=== PATIENT | male | born 1955 | race Caucasian/White ===

== ENCOUNTER 2018-12-30 10:29 | Emergency (ER) | payer OTHER, SELFPAY ==
[2018-12-30 10:32] VITALS: BP 139/67; PULSE 60; RESP 16; TEMP 36.9; O2SAT 96
--- NOTE | 2018-12-30 10:41 | W.ED.GENAD ---
Discharge Plan Disposition Patient Disposition: HOME Condition: Improving Discharge Details Chief Complaint: Laceration Clinical Impression: Laceration of hand, left Primary Care Provider: None,None ED Provider: Farhad Mason Discharge Instructions Instructions: Laceration (ED) Additional Instructions: Return or see your primary care physician for removal of stitches in 7 days. May use warm soap and water, pat dry and replace dressing daily. Return for any other acute concerns Medical Decision Making 6 healthy 63-year-old male presents with left hand laceration that he suffered when he brushed against a metal cutting tool at his place of work. No numbness, tingling, weakness. No other injury. Tetanus out of date. Wound anesthetized, irrigated, examined in a bloodless field without evidence of foreign body. Repaired with 2 interrupted sutures. Tetanus updated. Patient stable for outpatient management. He may return or see PMD for removal of sutures in 7 days. HPI General Mode of arrival: ambulatory. Date/Time Provider Initiated Documentation: 12/30/18 10:31. Limitations to Documentation: no limitations. Information obtained by: patient. History of Present Illness 63 year old M presents to the emergency department with the chief complaint of Left hand laceration with mild bleeding, no numbness or tingling, described as mild, Quality is described as aching, and is localized to the left and upper extremity. Patient reports no radiation. Patient started experiencing this minute(s) and it has been constant. No exacerbating factors reported . Patient notes no other symptoms.. Patient did receive the following treatments prior to arrival, none Related Data Allergies Allergy/AdvReac Type Severity Reaction Status Date / Time No Known Allergies Allergy Unverified 12/28/13 09:57 General Stated Complaint: Laceration MANDA: 4 Review of Systems Review of Systems For systems reviewed and otherwise negative [facility] Social History Smoking/Tobacco Use Status: Current every day Exam Narrative Exam Narrative: GEN: awake, alert, oriented 3. Pleasant, well groomed, interactive. HEAD: Normocephalic, atraumatic ENT: Mucous membranes moist, oropharynx unremarkable, External ear exam unremarkable EYES: PERRL, EOMI NECK: Full ROM, no YANG, no menigismus EXT: Full ROM, no edema, no rash. Left hand with 1 cm linear laceration over the hyperthenar eminence. Capillary refill less than 2 seconds, sensation intact, motor 5 out of 5 throughout Neuro: Grossly normal neurologic exam, conversant, interactive. Psych: Speech fluent, thoughts congruent, affect normal Course Vital Signs Temperature 36.9 C 12/30/18 10:32 Pulse 60 12/30/18 10:32 Respiratory Rate 16 12/30/18 10:32 Blood Pressure 139/67 12/30/18 10:32 Pulse Oximetry 96 12/30/18 10:32 Temperature 36.9 C 12/30/18 10:32 Temperature Source Skin 12/30/18 10:32 Pulse 60 12/30/18 10:32 Respiratory Rate 16 12/30/18 10:32 Blood Pressure 139/67 12/30/18 10:32 Pulse Oximetry 96 12/30/18 10:32 Oxygen Delivery Method Room Air 12/30/18 10:32 Oxygen Flow Rate 0 12/30/18 10:32 Pain Level 0 12/30/18 10:32 Procedures Laceration Laceration 1: Site: hand Side (If applicable): left Size (cm): 1 Description: linear Depth: simple, single layer Local Anesthetic: Lidocaine 1% Amount of anesthesia used (mL): 1 Skin layer closed with: nylon Size (cm): 4-0 Number of sutures: 2 Technique: simple, interrupted
--- NOTE | 2018-12-30 10:44 | ED.GENADUL_ITS ---
Discharge Plan Disposition Patient Disposition: HOME Condition: Improving Discharge Details Chief Complaint: Laceration Clinical Impression: Laceration of hand, left Primary Care Provider: None,None ED Provider: Farhad Mason Discharge Instructions Instructions: Laceration (ED) Additional Instructions: Return or see your primary care physician for removal of stitches in 7 days. May use warm soap and water, pat dry and replace dressing daily. Return for any other acute concerns Medical Decision Making 6 healthy 63-year-old male presents with left hand laceration that he suffered when he brushed against a metal cutting tool at his place of work. No numbness, tingling, weakness. No other injury. Tetanus out of date. Wound anesthetized, irrigated, examined in a bloodless field without evidence of foreign body. Repaired with 2 interrupted sutures. Tetanus updated. Patient stable for outpatient management. He may return or see PMD for removal of sutures in 7 days. HPI General Mode of arrival: ambulatory . Date/Time Provider Initiated Documentation: 12/30/18 10:31 . Limitations to Documentation: no limitations . Information obtained by: patient . History of Present Illness 63 year old M presents to the emergency department with the chief complaint of Left hand laceration with mild bleeding, no numbness or tingling, described as mild, Quality is described as aching, and is localized to the left and upper extremity. Patient reports no radiation. Patient started experiencing this minute(s) and it has been constant. No exacerbating factors reported . Patient notes no other symptoms.. Patient did receive the following treatments prior to arrival, none Related Data Allergies Allergy/AdvReac Type Severity Reaction Status Date / Time No Known Allergies Allergy Unverified 12/28/13 09:57 General Stated Complaint: Laceration MANDA: 4 Review of Systems Review of Systems For systems reviewed and otherwise negative [facility] Social History Smoking/Tobacco Use Status: Current every day Exam Narrative Exam Narrative: GEN: awake, alert, oriented 3. Pleasant, well groomed, interactive. HEAD: Normocephalic, atraumatic ENT: Mucous membranes moist, oropharynx unremarkable, External ear exam unremarkable EYES: PERRL, EOMI NECK: Full ROM, no YANG, no menigismus EXT: Full ROM, no edema, no rash. Left hand with 1 cm linear laceration over the hyperthenar eminence. Capillary refill less than 2 seconds, sensation intact, motor 5 out of 5 throughout Neuro: Grossly normal neurologic exam, conversant, interactive. Psych: Speech fluent, thoughts congruent, affect normal Course Vital Signs Temperature 36.9 C 12/30/18 10:32 Pulse 60 12/30/18 10:32 Respiratory Rate 16 12/30/18 10:32 Blood Pressure 139/67 12/30/18 10:32 Pulse Oximetry 96 12/30/18 10:32 Temperature 36.9 C 12/30/18 10:32 Temperature Source Skin 12/30/18 10:32 Pulse 60 12/30/18 10:32 Respiratory Rate 16 12/30/18 10:32 Blood Pressure 139/67 12/30/18 10:32 Pulse Oximetry 96 12/30/18 10:32 Oxygen Delivery Method Room Air 12/30/18 10:32 Oxygen Flow Rate 0 12/30/18 10:32 Pain Level 0 12/30/18 10:32 Procedures Laceration Laceration 1: Site: hand Side (If applicable): left Size (cm): 1 Description: linear Depth: simple, single layer Local Anesthetic: Lidocaine 1% Amount of anesthesia used (mL): 1 Skin layer closed with: nylon Size (cm): 4-0 Number of sutures: 2 Technique: simple, interrupted
== END 2018-12-30 11:00 | disposition home or self-care (01) ==
LOC: ER 10:59
PROVIDERS: Emergency Provider Emergency Medicine
DX: S61.412A Laceration without foreign body of left hand, initial encounter (principal); W26.8XXA Contact with other sharp object(s), not elsewhere classified, initial encounter
CPT/HCPCS: 12001; 90471

== ENCOUNTER 2022-03-08 02:30 | Outpatient (CLI) | payer BC, SELFPAY ==
[2022-03-08 17:23] LABS: Hemoglobin A1C 5.8 % (<5.7)
[2022-03-08 20:54] LABS: Calculated LDL 103 mg/dL (<100); Cholesterol 161 mg/dL (<200); HDL Cholesterol 41 mg/dL (40-60); Triglyceride 86 mg/dL (<150)
[2022-03-11 09:55] LABS: PSA, Screening 1.7 ng/mL (<=4.5)
== END 2022-03-08 02:31 | disposition home or self-care (01) ==
LOC: LBO 02:30
PROVIDERS: PCP Nurse Practitioner Family; Visit Provider Nurse Practitioner Family
DX: Z13.220 Encounter for screening for lipoid disorders (principal); Z13.1 Encounter for screening for diabetes mellitus; Z12.5 Encounter for screening for malignant neoplasm of prostate
CPT/HCPCS: 36415; 80061; 84153; 83036

== ENCOUNTER → 2023-08-05 10:10 | Outpatient (CLI) | payer MEDICARE, SELFPAY ==
--- NOTE | 2023-08-05 07:30 | DI.US_ITS ---
Exam(s) US LOWER EXTREMITY VENOUS LT EXAM: US LOWER EXTREMITY VENOUS LT CLINICAL HISTORY: r/o DVT M79.89 SOFT TISSUE DISORDER I83.899 VARICOSE VEIN LOWER EXTREMITY TECHNIQUE: Grayscale, color, and doppler imaging of the deep venous system of the lower extremity w as performed. COMPARISON: Left FINDINGS: There is no evidence of intraluminal thrombus and there is normal compression and augmentation demons trated within the common femoral vein, femoral vein, and popliteal vein. In the ipsilateral calf the interrogated deep veins also exhibit normal compression/ augmentation pro perties. However, this study is positive for clot within the greater saphenous vein and associated varicose ve ins from the proximal thigh to the level of the knee, this clot length being slightly over 20 cm belkis th. The upper aspect of the intraluminal thrombus is 3.7 cm from the saphenofemoral junction. IMPRESSION: This study is positive for the presence thrombus within the greater saphenous vein in the thigh exten ding from the upper thigh to the level of the knee with clot length being approximately 20 cm. The distance from the most cephalad aspect of the clot to the saphenofemoral junction is 3.7 cm. Appropriate follow-up recommended. Positive DATA REPOSITORY:
== END ==
PROVIDERS: PCP Nurse Practitioner Family; Visit Provider Nurse Practitioner Family
DX: I83.899 Varicose veins of unspecified lower extremity with other complications (principal); M79.89 Other specified soft tissue disorders
CPT/HCPCS: 93971

== ENCOUNTER 2023-09-24 02:34 | Emergency (ER) | payer MEDICARE, SELFPAY ==
[2023-09-24] VITALS (24 sets, daily range): BP systolic 112–164; BP diastolic 43–60; PULSE 62–77; RESP 11–18; TEMP 36.4; O2SAT 93–97
--- NOTE | 2023-09-24 02:30 | DI.CT_ITS ---
Exam(s) CT CHEST PE CTA EXAM: CT CHEST PE CTA CLINICAL HISTORY: recent dvt, now SOB, r/o PE. TECHNIQUE: Imaging Protocol: CT angiography of the chest was performed using pulmonary embolus dannielle col. Multi planar reconstructions were performed. CONTRAST MATERIAL: Intravenous: Omnipaque 350 Contrast volume: 100 cc COMPARISON: No exams were available for comparison FINDINGS: CHEST: PULMONARY ARTERIES: Suboptimal opacification of segmental and subsegmental pulmonary arteries. There are no intraluminal filling defects in the more proximal main pulmonary arteries. LUNGS: No confluent infiltrates nor pleural effusions. No evidence of pulmonary infarction.. No obv ious pulmonary nodules. MEDIASTINUM: There is no hilar nor mediastinal adenopathy. No subcarinal adenopathy. Visualized thyr oid gland unremarkable. The esophagus is filled with fluid up to its origin. No evidence of aspirat ion pneumonia. CARDIAC: Heart size is upper normal. There is no pericardial effusion.Caliber of the thoracic aorta is within normal limits. No evidence of dissection. There is no significant shift of the interventri cular septum. PARTIALLY VISUALIZED UPPERMOST ABDOMEN: No adrenal masses. No splenomegaly. OSSEOUS: No significant osseous lesions.. IMPRESSION: 1. Less than optimal study for determination of pulmonary emboli. Examination is nondiagnostic for s mall more distal pulmonary emboli..There are no intraluminal filling defects in the main pulmonary ar teries. 2. No evidence of aortic dissection nor pericardial effusion. 3. Fluid distention of the esophagus noted, probably related to reflux. No evidence of aspiration pn eumonia at this time. No pleural effusions. RADIATION DOSE DELIVERED: Total DLP DATA REPOSITORY: All CT scans at this facility are submitted to the National Radiology Data Registry (NRDR) Dose Index Registry (DIR) with the [employer] (ACR). RADIATION OPTIMIZATION: All CT scans at this facility use at least one of these dose optimization te chniques: automated exposure control; mA and/or kV adjustment per patient size (includes targeted exa ms where dose is matched to clinical indication); or iterative reconstruction.
--- NOTE | 2023-09-24 02:30 | RT.EKG_ITS ---
APPROVED REPORT Exam: Resting ECG Reason for Exam: difficulty breathing Patient Location: E HR:74 bpm ECG Measurements Heart Rate 74 AXIS NE 166 P 80 QRSd 89 QRS 45 QT 379 T 67 QTc 421 Conclusion Sinus rhythm...normal P axis, V-rate 60- 99 Physician: no stemi
--- NOTE | 2023-09-24 02:30 | DI.CT_ITS ---
Exam(s) CT HEAD WO EXAM: CT HEAD WO CLINICAL HISTORY: dizzy, confused. TECHNIQUE: Imaging Protocol: Axial computed tomography images with coronal and sagittal reformatted images were created and reviewed COMPARISON: No exams were available for comparison FINDINGS: There are no skull fractures. 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 There is a circumferential wire in the lateral wall of the right orbit no ab normal fluid collection at this level. 4 x 0.9 cm. There is no evidence of intracranial hemorrhage, mass effect, or shift of midline structures. There are no extra-axial fluid collections. The ventricles are not enlarged or shifted and there is no blo od within the ventricular system nor within the basal cisterns. IMPRESSION: No acute intracranial findings on this noninfused CT scan of the brain. Other significant findings as above. RADIATION DOSE DELIVERED: Total DLP DATA REPOSITORY: All CT scans at this facility are submitted to the National Radiology Data Registry (NRDR) Dose Index Registry (DIR) with the [employer] (ACR). RADIATION OPTIMIZATION: All CT scans at this facility use at least one of these dose optimization te chniques: automated exposure control; mA and/or kV adjustment per patient size (includes targeted exa ms where dose is matched to clinical indication); or iterative reconstruction.
--- NOTE | 2023-09-24 02:45 | ED.GENADUL_ITS ---
Discharge Plan Disposition Patient Disposition: Home Discharge Details Chief Complaint: SOB Clinical Impression: Transaminitis, Dizziness Primary Care Provider: Antony Lafleur ED Provider: Osmar Devlin Discharge Instructions Instructions: Dizziness (ED) Additional Instructions: At this time your work-up shows no blood clots, stroke, or other significant abnormality. Your liver function was slightly higher than expected. We have placed an outpatient order for hepatitis panel. This will be back in a few days. Please follow-up closely with your primary care provider, stay well- hydrated and drink plenty of fluids. If you notice any worsening of your symptoms, or any new symptoms such as vomiting, diarrhea, fever, chills, shortness of breath, chest pain, numbness, weakness, or fainting , please return immediately to the emergency department for reevaluation. Please follow up with your primary care provider as soon as possible for reassessment and reevaluation. As always, it was a pleasure participating in your medical care today. Referrals: Antony Lafleur, SPECIAL EDUCATION DIRECTOR [Primary Care Provider] - Medical Decision Making 68-year-old male with no significant past medical history who takes no medications except for a recent history of a left lower extremity DVT he was started on Xarelto and just finished after a month long course of treatment. Finished 3 days ago. Patient had been doing well until tonight, he noticed this evening as he was getting ready for bed that he became dizzy which she is not able to describe in any more detail. He also felt short of breath. This continued throughout the night including when he woke up currently at around 2 AM. He denies any history of asthma or COPD. He denies any vomiting or diarrhea. He denies any chest pain, chest tightness, arm neck or shoulder pain. He denies any cough or fever. No new trauma. No calf pain or tenderness. No other complaints at this time. No other modifying factors. Patient does state that he is already starting to feel better upon arrival to the ED. Exam demonstrates well-appearing male, vital signs normal, no horizontal vertical or rotatory nystagmus. No calf tenderness. Lung sounds clear. No significant abnormalities noted on current clinical exam. Differential includes an episode of peripheral vertigo that has since resolved, pulmonary embolism, pneumonia, electrolyte abnormality, less likely stroke. We will get a CT scan of the head to evaluate for bleed or mass, will get a CTA PE study to evaluate for potential PE with the shortness of breath and recent blood clot. Will monitor closely and reassess. 4:44 AM EKG normal. No dysrhythmia or ST concerning changes. Patient continues to feel well. After fluids he states that he feels much better and energized. Dehydration may have been a component. He does not drink much throughout the day. Laboratory work-up shows no bandemia or white count. Platelets are normal. Electrolytes normal, renal function normal, troponin normal, thyroid function normal, alcohol level only 3.6. CTA of the chest demonstrates no large pulmonary emboli, minimal fluid in the esophagus, concern for potential reflux. No evidence of pulmonary aspiration though. CT of the head demonstrates no acute abnormality. Small frontal osteoma but no other abnormality otherwise. Patient continues to feel well. Suspect symptoms may have been from mild episode of BPPV which is since resolved. Symptoms appearing consistent with cardiac dysrhythmia. He denies any leg pain, calf pain or thigh pain or tenderness. Neurologic exam normal on reassessment. Patient stable for discharge. Patient does have follow-up with his primary care provider in 24 hours. Additionally of note there is a slight elevation in his transaminases. No prior values for comparison. We will place an order for send out test for hepatitis panel. Recommended close PCP follow-up. Discussed red flags for which to return. I have extensively reviewed the treatment plan and discharge instructions with the patient and their family. I have addressed all patient concerns at this time. The patient and family was made aware of what symptoms to monitor for that would warrant a return to the emergency department. Discussed the plan with the patient and family, they demonstrate verbal understanding and agreement with our assessment and plan at this time. The documentation in this chart was dictated using [employer] dictation software. Please excuse any dictation errors. FINDINGS: Limitations: Mild motion artifact. Pulmonary arteries are poorly opacified. Evaluation for pulmonary embolus is limited. Pulmonary arteries: No large central pulmonary embolus identified. Examination is nondiagnostic for smaller emboli due to limitations noted above. Aorta: No thoracic aortic aneurysm seen. Lungs: Cystic changes in the lungs. No focal consolidation seen. Scarring at the lung apices. Pleural spaces: No pleural effusion. Heart: No pericardial effusion. Coronary arteries: Coronary artery calcifications. Mediastinal space: Fluid distention of the esophagus. Lymph nodes: Nonspecific mediastinal lymph nodes. Diaphragm: Small hiatal hernia. Fat containing left Bochdalek hernia. Spleen: Heterogeneous enhancement of the spleen, likely related to technical factors. Adrenal glands: Adrenal thickening. Bones/joints: No acute pertinent abnormality seen. Soft tissues: No acute pertinent abnormality seen. IMPRESSION: 1. No large central pulmonary embolus identified. Nondiagnostic for smaller emboli due to factors noted above. 2. Fluid distention of the esophagus. Correlate clinically for reflux. Patient may be at risk for aspiration. 3. Nonacute findings as outlined above. Thank you for allowing us to participate in the care of your patient. Dictated and Authenticated by: Dionne Mckeon MD 09/24/2023 4:18 AM Eastern Time ([place] & [place]) FINDINGS: Brain: No intracranial hemorrhage appreciated. No significant focal mass effect or significant midline shift. Cerebral ventricles: No disproportionate ventriculomegaly. Paranasal sinuses: See Bones/joints finding. Mastoid air cells: No mastoid effusion. 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 Soft tissues: No acute findings. IMPRESSION: 1. No acute intracranial abnormality is appreciated. 2. Findings as above. Thank you for allowing us to participate in the care of your patient. Dictated and Authenticated by: Dionne Mckeon MD 09/24/2023 4:31 AM Eastern Time ([place] & [place]) HPI General Date/Time Provider Initiated Documentation: 09/24/23 02:37 . HPI Narrative: 68-year-old male with no significant past medical history who takes no medications except for a recent history of a left lower extremity DVT he was started on Xarelto and just finished after a month long course of treatment. Finished 3 days ago. Patient had been doing well until tonight, he noticed this evening as he was getting ready for bed that he became dizzy which she is not able to describe in any more detail. He also felt short of breath. This continued throughout the night including when he woke up currently at around 2 AM. He denies any history of asthma or COPD. He denies any vomiting or diarrhea. He denies any chest pain, chest tightness, arm neck or shoulder pain. He denies any cough or fever. No new trauma. No calf pain or tenderness. No other complaints at this time. No other modifying factors. Patient does state that he is already starting to feel better upon arrival to the ED. Related Data Allergies Allergy/AdvReac Type Severity Reaction Status Date / Time No Known Allergies Allergy Verified 09/24/23 02:44 General Stated Complaint: SOB MANDA: 3 Review of Systems All systems reviewed & are unremarkable except as noted in HPI and below PFSH All Active Problems (Updated 09/24/23 @ 04:49 by Osmar Devlin DO) Dizziness (Acute) Transaminitis (Acute) Acute superficial venous thrombosis of left lower extremity (Acute) COVID-19 (Acute) 12/14/21 Smoker (Acute) less than half pack per day Protein C deficiency (Acute) Family History Father , 83 No problems noted. Brother , 65 No problems noted. Son No problems noted. Son No problems noted. Social History Smoking/Tobacco Use Status: Current every day Tobacco Type: cigarettes Tobacco: How many years used: 45 Quit status: has quit before Second Hand Exposure: Yes Smoking risk assessment performed?: Yes Alcohol Intake: former Substance use type: does not use Household members: spouse Housing: house Communication Needs: None Do you need help understanding health information?: Never Pets and animals: No Sexually active: Yes Do you think of yourself as: straight/heterosexual Current gender identity: male What is your relationship status?: How often do you talk on the phone with friends or family?: three or more times per week How often do you get together with friends or relatives?: once per week How often do you attend roman catholic or cheondoism services?: decline to answer Do you belong to any clubs or organized social groups?: no Panel score (0-1 are the most socially isolated patients): 2 What type of physical activity do you participate in: walking Frequency: 1-2 times per week Norma/Quaker: None Special norma needs: No Seatbelt use: always Helmet use: No Drive intox or ride w/intox inventory associate and driver: No Do you feel safe at home: Yes Do you feel safe in your relationship?: Yes Exam Narrative Exam Narrative: 1.Const: Well-nourished, Well-developed, appearing stated age 2.Eyes: PERRL, no conjunctival injection, and symmetrical lids. 3.ENT: Atraumatic external nose and ears. Moist MM. Neck: Symmetric, trachea midline, No thyromegaly. 4.CVS: +S1/S2, No murmurs or gallops. Peripheral pulses 2+ and equal in all extremities. Brisk capillary refill in all extremities. 5.RESP: Unlabored respiratory effort. Clear to auscultation bilaterally. No wheezes rales or rhonchi 6.GI: Soft, Nontender/Nondistended, No hepatosplenomegaly. No guarding or rebound. 7.MSK: Normocephalic/Atraumatic, Extremities w/o deformity or ttp No cyanosis or clubbing, Normal movement of all extremities. No calf pain or tenderness. Minimal superficial ropiness on the medial proximal aspect of the thigh, which the patient states is notably improved and chronic from previous clots. 8.Skin: Warm, Dry. No rashes or lesions. 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 Sensation grossly intact, no focal neurologic deficits. All 6 cardinal planes of vision are fully intact. No evidence of rotatory or vertical nystagmus. The patient demonstrated a normal zwthiq-[id number]-aohlri, good dexterity. There was no evidence of dysdiadochokinesia. Sensation was intact bilaterally as well as muscle strength bilaterally for all extremities. Patient was able to verbalize butter cup with no slurring, or miss pronunciation. 10.Psych: (AAO) x3. Appropriate mood and affect Course Vital Signs Vital signs: Vital Signs Temperature 36.4 C 09/24/23 02:34 Pulse 74 09/24/23 02:34 Respiratory Rate 18 09/24/23 02:34 Blood Pressure 164/58 H 09/24/23 02:34 Pulse Oximetry 94 09/24/23 02:34 Temperature 36.4 C 09/24/23 02:38 Temperature Source Oral 09/24/23 02:38 Pulse 77 09/24/23 02:38 Respiratory Rate 18 09/24/23 02:38 Respiratory Effort Normal, Non-Labored, Short of Breath 09/24/23 02:38 Respiratory Depth Normal 09/24/23 02:38 Respiratory Pattern Normal 09/24/23 02:38 Blood Pressure 164/58 H 09/24/23 02:38 Pulse Oximetry 97 09/24/23 02:38 Oxygen Delivery Method Room Air 09/24/23 02:38 Oxygen Flow Rate 0 09/24/23 02:34
[2023-09-24] MEDS: Meclizine 25 MG TAB PO (02:49)
[2023-09-24] MEDS: Normal Saline 500 ML IV (02:56)
[2023-09-24 03:03] LABS: Abs Immature Grans 0.03 10^3/uL (0.0-0.06); Absolute Basophil Count 0.03 10^3/uL (0.0-0.2); Absolute Eosinophil Count 0.07 10^3/uL (0.0-0.7); Absolute Lymphocyte Count 1.04 10^3/uL (1.2-3.4); Absolute Monocyte Count 0.41 10^3/uL (0.1-0.8); Absolute Neutrophil Count 7.17 10^3/uL (1.2-6.7); Basophils % 0.3; Eosinophils % 0.8; HCT 45.7 % (40.0-50.0); HGB 15.7 g/dL (13.5-17.5); Immature Grans % 0.3; Lymphocytes % 11.9; MCHC 34.4 % (32.0-36.0); MCV 90 fL (80-95); MPV 9.8 fL (8.0-11.0); Monocytes % 4.7; Platelet Count 150 10^3/uL (130-400); RBC 5.06 10^6/uL (4.36-5.78); RDW 12.2 % (11.8-14.1); RDW-SD 40.1 fL; WBC 8.75 10^3/uL (4.4-10.8)
[2023-09-24 03:16] LABS: INR 1.1 (0.9-1.1); PTT Activated 24.5 sec (23.6-32.8)
[2023-09-24 03:20] LABS: Troponin I < 50 ng/L (<or=60)
[2023-09-24 03:33] LABS: ALT 131 U/L (16-63); AST 62 U/L (15-37); Albumin 3.8 g/dL (3.4-5.0); Alkaline Phosphatase 85 U/L (46-116); Anion Gap 6.8 mmol/L (3-11); BUN 16 mg/dL (7-18); Bilirubin, Total 0.6 mg/dL (0.2-1.0); CO2 27.2 mmol/L (21.0-32.0); CREATININE 1.1 mg/dL (0.70-1.30); Calcium 9.6 mg/dL (8.5-10.1); Chloride 102 mmol/L (98-107); ETHANOL BLOOD 3.6 mg/dL (<10); Estimated GFR 74.04 (mL/min/1.73m2); Glucose 173 mg/dL (74-106); NT-proBNP 38 pg/mL (<300); Potassium 4.3 mmol/L (3.5-5.1); Sodium 136 mmol/L (136-145); Total Protein 7.4 g/dL (6.4-8.2)
[2023-09-24] MEDS: Omnipaque 350 MG/ML 100 ML BTL IJ (03:35)
[2023-09-24] MEDS: Normal Saline - Diluent 50 ML VIAL IJ (03:36)
[2023-09-24] MEDS: Normal Saline Flush 10 ML SYR IVP (03:37)
--- NOTE | 2023-09-24 04:19 | DI.VRAD_ITS ---
PROCEDURE INFORMATION: Exam: CTA Chest With Contrast Exam date and time: 09/24/2023 3:49 AM Age: 68 years old Clinical indication: Shortness of breath; Patient HX: Recent dvt, now SOB, R/O pe TECHNIQUE: Imaging protocol: Computed tomographic angiography of the chest with contrast. Exam focused on the arteries. 3D rendering (Not supervised by radiologist): MIP and/or 3D reconstructed images were created by the technologist. Radiation optimization: All CT scans at this facility use at least one of these dose optimization techniques: automated exposure control; mA and/or kV adjustment per patient size (includes targeted exams where dose is matched to clinical indication); or iterative reconstruction. Contrast material: OMNIPAQUE 350; Contrast volume: 57 ml; Contrast route: INTRAVENOUS (IV); COMPARISON: No relevant prior studies available. FINDINGS: Limitations: Mild motion artifact. Pulmonary arteries are poorly opacified. Evaluation for pulmonary embolus is limited. Pulmonary arteries: No large central pulmonary embolus identified. Examination is nondiagnostic for smaller emboli due to limitations noted above. Aorta: No thoracic aortic aneurysm seen. Lungs: Cystic changes in the lungs. No focal consolidation seen. Scarring at the lung apices. Pleural spaces: No pleural effusion. Heart: No pericardial effusion. Coronary arteries: Coronary artery calcifications. Mediastinal space: Fluid distention of the esophagus. Lymph nodes: Nonspecific mediastinal lymph nodes. Diaphragm: Small hiatal hernia. Fat containing left Bochdalek hernia. Spleen: Heterogeneous enhancement of the spleen, likely related to technical factors. Adrenal glands: Adrenal thickening. Bones/joints: No acute pertinent abnormality seen. Soft tissues: No acute pertinent abnormality seen. IMPRESSION: 1. No large central pulmonary embolus identified. Nondiagnostic for smaller emboli due to factors noted above. 2. Fluid distention of the esophagus. Correlate clinically for reflux. Patient may be at risk for aspiration. 3. Nonacute findings as outlined above. Dictated and Authenticated by: Dionne Mckeon MD. Ordering:KELLI Prasad MD
--- NOTE | 2023-09-24 04:32 | DI.VRAD_ITS ---
PROCEDURE INFORMATION: Exam: CT Head Without Contrast Exam date and time: 09/24/2023 3:46 AM Age: 68 years old Clinical indication: Altered mental status/memory loss and dizziness; Confusion or disorientation; Patient HX: Dizzy, confused TECHNIQUE: Imaging protocol: Computed tomography of the head without contrast. Radiation optimization: All CT scans at this facility use at least one of these dose optimization techniques: automated exposure control; mA and/or kV adjustment per patient size (includes targeted exams where dose is matched to clinical indication); or iterative reconstruction. COMPARISON: No relevant prior studies available. FINDINGS: Brain: No intracranial hemorrhage appreciated. No significant focal mass effect or significant midline shift. Cerebral ventricles: No disproportionate ventriculomegaly. Paranasal sinuses: See Bones/joints finding. Mastoid air cells: No mastoid effusion. 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 Soft tissues: No acute findings. IMPRESSION: 1. No acute intracranial abnormality is appreciated. 2. Findings as above. Dictated and Authenticated by: Dionne Mckeon MD. Ordering:KELLI Prasad MD
[2023-09-25 11:29] LABS: Hepatitis A Antibody IgM Negative (Negative); Hepatitis B Core Antibody Negative (Negative); Hepatitis B surface Ag Negative (Negative); Hepatitis C Ab w Rflx HCV PCR Reactive (Negative)
[2023-09-26 13:29] LABS: HCV RNA Detection Quantitative 2840000 IU/mL (Undetected); HCV RNA Qualitative Detected (Undetected)
== END 2023-09-24 04:58 | disposition home or self-care (01) ==
LOC: ER 05:04
PROVIDERS: Emergency Provider Student in an Organized Health Care Education/Training Program; PCP Nurse Practitioner Family
DX: R42 Dizziness and giddiness (principal); R53.1 Weakness; R06.02 Shortness of breath; F17.210 Nicotine dependence, cigarettes, uncomplicated; Z86.718 Personal history of other venous thrombosis and embolism; Z79.899 Other long term (current) drug therapy
CPT/HCPCS: 71275; 80053; 86704; 86709; 86803; 87340; 87522; 93005; 96360; 99285; 70450; 80320; 83880; 84443; 84484; 85025; 85610; 85730; 93010; 99284; J3490

== ENCOUNTER 2023-10-07 00:57 | Outpatient (CLI) | payer MEDICARE, SELFPAY ==
[2023-10-08 12:25] LABS: Hepatitis A Antibody IgM Negative (Negative); Hepatitis B Core Antibody Negative (Negative); Hepatitis B surface Ag Negative (Negative); Hepatitis C Ab w Rflx HCV PCR Reactive (Negative)
[2023-10-09 11:08] LABS: HCV RNA Detection Quantitative 414000 IU/mL (Undetected); HCV RNA Qualitative Detected (Undetected)
== END 2023-10-07 00:58 | disposition home or self-care (01) ==
LOC: LOS 00:57
PROVIDERS: PCP Nurse Practitioner Family; Visit Provider Nurse Practitioner Family
DX: R76.8 Other specified abnormal immunological findings in serum (principal)
CPT/HCPCS: 36415; 86704; 86709; 86803; 87340; 87522

== ENCOUNTER 2025-06-30 02:46 | Outpatient (CLI) | payer MEDICARE, SELFPAY ==
[2025-06-30 12:48] LABS: Anion Gap 4.0 mmol/L (3-11); BUN 24 mg/dL (7-18); CO2 30.0 mmol/L (21.0-32.0); Calcium 9.1 mg/dL (8.5-10.1); Calculated LDL 122 mg/dL (<100); Chloride 109 mmol/L (98-107); Cholesterol 187 mg/dL (<200); Estimated GFR 73.12 (mL/min/1.73m2); Glucose 93 mg/dL (74-106); HDL Cholesterol 46 mg/dL (>or=40); Potassium 4.2 mmol/L (3.5-5.1); Sodium 143 mmol/L (136-145); Triglyceride 98 mg/dL (<150)
[2025-06-30 12:49] LABS: Hemoglobin A1C 5.5 % (<5.7)
[2025-06-30 18:53] LABS: PSA, Screening 4.4 ng/mL (<=4.5)
== END 2025-06-30 02:47 | disposition home or self-care (01) ==
LOC: LOS 02:46
PROVIDERS: PCP Nurse Practitioner Family; Visit Provider Nurse Practitioner Family
DX: Z13.1 Encounter for screening for diabetes mellitus (principal); Z12.5 Encounter for screening for malignant neoplasm of prostate; Z13.6 Encounter for screening for cardiovascular disorders
CPT/HCPCS: 36415; 80048; 80061; 84153; 83036